=== PATIENT | male | born 1945 | race Caucasian/White ===

== ENCOUNTER 2016-12-09 06:02 | Observation (INO) | payer MEDICARE, OTHER ==
--- NOTE | 2016-12-09 06:48 | EDM.PDOC ---
ED HPI GENERAL MEDICAL PROBLEM - General Chief Complaint: Chest Pain Stated Complaint: NOT FEELING WELL/LEFT SIDE OF FACE NUMB Time Seen by Provider: 12/09/16 06:22 Source of Information: Reports: Patient, Family History Limitations: Reports: No Limitations, Other (Both the patient and his are very vague historians) - History of Present Illness INITIAL COMMENTS - FREE TEXT/NARRATIVE: This is a 71-year-old male. He comes in because he awoke this morning with a more severe left-sided facial feeling of numbness. Apparently over about the last 10 days or so he has been awakening at 2 or 3 in the morning which is kind of normal for him but when he does he just doesn't feel right and feels like his face his neck may be in his left arm is kind of numb though he can still feel. He denies any weakness during this time of his left arm no unilateral weakness at times when he does wake up he feels kind of clammy here he's noted over the last 10 days his blood pressure is been going up and coming down but doesn't really give me a idea of what the pressures have been he also notes that normally his heart rates been between 40 and 50 and that is normal for him but that he'll jump up to 80 or 90 though the rapid heart rate for him is not connected to the numbness feeling or the clamminess. He thinks the severity of the numbness or that sensation on the left side has been worse over the last several mornings. He denies any significant chest pain no shortness of breath no cough no fever no chills. He does have a history of having a stent in 2011. His states that she is noted over the last week or so that whenever he does something strenuous he would just be wiped out afterwards and feels somewhat weak and feeling wasted and occasionally he'll get some of this sensation in the left face neck and arm after doing strenuous activity. When he had the stent in 2011 he was having basically no symptoms just elevated blood pressure and they did a stress test on him and found that he had a blockage and gave him the stent. He is on CPAP which she says works very well and he is pleased with it. He also apparently has a history of certain supplements and preservatives in foods seem to make his heart speed up or flip-flop or race at times. I could never actually get a history of any sort of chest pressure, nausea, or near syncope from the patient with these symptoms as described above. The patient does state that 2 days ago when he was having these symptoms early in the morning he took his nitroglycerin stat 2 and it did seem to make a difference as far as him feeling better. Patient now gives a history that the symptoms actually seem to be worsening over the last 10 days suggesting an unstable angina. - Related Data Allergies Allergy/AdvReac Type Severity Reaction Status Date / Time No Known Allergies Allergy Verified 12/09/16 06:10 Home Meds: Home Meds Aspirin 81 mg PO DAILY 12/09/16 [History] Aspirin 325 mg PO ONCALL PRN 12/09/16 [History] Metoprolol Succinate [Toprol XL] 12.5 mg PO DAILY 12/09/16 [History] Nitroglycerin [Nitrostat] 0.4 mg SL ASDIRECTED PRN 12/09/16 [History] Past Medical History HEENT History: Reports: Cataract, Hard of Hearing, Impaired Vision Other HEENT History: Wears glasses, hearing aids Cardiovascular History: Reports: High Cholesterol, Hypertension, Stents Respiratory History: Reports: Sleep Apnea - Past Surgical History HEENT Surgical History: Reports: Cataract Surgery GI Surgical History: Reports: Colonoscopy, Hernia, Abdominal, Hernia, Inguinal Social & Family History - Tobacco Use Smoking Status *Q: Former Smoker Used Tobacco, but Quit: Yes Month Tobacco Last Used: 07/24/2002 - Recreational Drug Use Recreational Drug Use: No ED ROS GENERAL - Review of Systems Review Of Systems: See Below Constitutional: Reports: Fatigue, Diaphoresis. Denies: Fever, Chills HEENT: Reports: Other (Left facial feeling of numbness) Respiratory: Denies: Shortness of Breath, Wheezing, Cough Cardiovascular: Reports: Lightheadedness. Denies: Chest Pain, Syncope Endocrine: Reports: Fatigue GI/Abdominal: Reports: No Symptoms : Reports: No Symptoms Musculoskeletal: Reports: Other (That numb sensation to his left arm but he denies any weakness) Skin: Reports: Other (As per history of present illness) Neurological: Reports: Paresthesia. Denies: Confusion, Dizziness, Headache, Syncope, Tingling, Trouble Speaking, Difficulty Walking, Weakness Psychiatric: Reports: No Symptoms Hematologic/Lymphatic: Reports: No Symptoms ED EXAM, GENERAL - Physical Exam Exam: See Below Exam Limited By: No Limitations General Appearance: Alert, WD/WN, No Apparent Distress Eye Exam: Bilateral Eye: Normal Inspection Ears: Normal External Exam, Normal Canal, Normal TMs Nose: Normal Inspection Throat/Mouth: Normal Inspection, Normal Lips, Normal Voice, No Airway Compromise Head: Normocephalic Neck: Supple, Full Range of Motion. No: Carotid Bruit Respiratory/Chest: No Respiratory Distress, Lungs Clear, Normal Breath Sounds Cardiovascular: Regular Rate, Rhythm, No Edema, No Murmur, Bradycardia GI/Abdominal: Soft, Non-Tender Back Exam: Normal Inspection, Full Range of Motion Extremities: Normal Inspection, Normal Range of Motion, Non-Tender, No Pedal Edema Neurological: Alert, Oriented, CN II-XII Intact, Normal Cognition, No Motor/ Sensory Deficits, Other (That numb feeling in his left arm face and neck seem to have resolved at this time before getting to the ER, he appears to have symmetrical divine healer strength presently) Psychiatric: Normal Affect, Normal Mood Skin Exam: Warm, Dry, Other (No diaphoresis presently, blood sugar was 153 when he came to the ER) EKG INTERPRETATION EKG Interpretation Comments: EKG shows a sinus bradycardia of about [address] or T-wave changes noted there is no ischemia noted there's no extra beats noted. Course - Vital Signs Last Recorded V/S: Last Vital Signs Temp 97.8 F 12/09/16 06:12 Pulse 49 L 12/09/16 06:12 Resp 17 12/09/16 06:12 BP 139/77 12/09/16 06:12 Pulse Ox 100 12/09/16 06:12 - Orders/Labs/Meds Orders: Active Orders 24 hr Category Date Time Status EKG 12 Lead [EKG Documentation Completion] [RC] STAT Care 12/09/16 06:53 Active Labs: Laboratory Tests 12/09/16 12/09/16 Range/Units 06:24 06:24 WBC 6.40 (4.23-9.07) K/mm3 RBC 4.96 (4.63-6.08) M/mm3 Hgb 14.5 (13.7-17.5) gm/L Hct 42.4 (40.1-51.0) % MCV 85.5 (79.0-92.2) fl MCH 29.2 (25.7-32.2) pg MCHC 34.2 (32.2-35.5) g/dl RDW Std Deviation 44.0 H (35.1-43.9) fL Plt Count 163 (163-337) K/mm3 MPV 11.3 (9.4-12.3) fl Neut % (Auto) 62.9 (34.0-67.9) % Lymph % (Auto) 23.9 (21.8-53.1) % [place] % (Auto) 10.2 (5.3-12.2) % Eos % (Auto) 2.5 (0.8-7.0) Baso % (Auto) 0.3 (0.1-1.2) % Neut # (Auto) 4.03 (1.78-5.38) K/mm3 Lymph # (Auto) 1.53 (1.32-3.57) K/mm3 [place] # (Auto) 0.65 (0.30-0.82) K/mm3 Eos # (Auto) 0.16 (0.04-0.54) K/mm3 Baso # (Auto) 0.02 (0.01-0.08) K/mm3 Sodium 144 (136-145) mEq/L Potassium 3.6 (3.5-5.1) mEq/L Chloride 108 H (98-107) mEq/L Carbon Dioxide 27 (21-32) mEq/L Anion Gap 12.6 (5-15) BUN 25 H (7-18) mg/dL Creatinine 1.0 (0.7-1.3) mg/dL Est Cr Clr Drug Dosing 65.18 mL/min Estimated GFR (MDRD) > 60 (>60) mL/min BUN/Creatinine Ratio 25.0 H (14-18) Glucose 103 (80-115) mg/dL Calcium 9.4 (8.5-10.1) mg/dL Total Bilirubin 0.7 (0.2-1.0) mg/dL AST 20 (15-37) U/L ALT 23 (16-63) U/L Alkaline Phosphatase 56 (46-116) U/L Troponin I < 0.017 (0.00-0.056) ng/mL Total Protein 6.9 (6.4-8.2) g/dl Albumin 3.7 (3.4-5.0) g/dl Globulin 3.2 gm/dL Albumin/Globulin Ratio 1.2 (1-2) - Re-Assessments/Exams Free Text/Narrative Re-Assessment/Exam: 12/09/16 07:55 I spoke to the patient and his regarding the need for a stress test again. I suggested that he needed to be admitted but he is uncertain whether he wants to be admitted or not and there are now discussing it between themselves. I saw that he was on some Nitrostat and he has not taken the Nitrostat for the symptoms that he has in the mornings and I encouraged him to use the Nitrostat if this occurs again during the day or in the green prize packer hours and see the makes a difference. 12/09/16 08:[address] Najera and he'll admit the patient for further evaluation and stress test on Saturday. The patient and the were good with this and they wish to be admitted. Departure - Departure Time of Disposition: 08:07 Disposition: Admitted As Inpatient 68 Condition: Good Clinical Impression: Unstable angina, Bradycardia Coronary artery disease Qualifiers: Coronary Disease-Associated Artery/Lesion type: unspecified vessel or lesion type [place] vs. transplanted heart: [place] heart Associated angina: with unstable angina Qualified Code(s): I25.110 - Atherosclerotic heart disease of [place] coronary artery with unstable angina pectoris Additional Instructions: I spoke with Dr. Najera and he'll admit the patient for further evaluation and treatment with stress test on Saturday ED Communication - ED Communication Date/Time Date: 12/09/16 Time Called: 08:09 - Discussed Case With (1) Discussed Case With (1): Admitting Provider Person/s Notified (1): Celi Najera (He will admit the patient) - My Orders Last 24 Hours: My Active Orders 12/09/16 06:53 EKG 12 Lead [EKG Documentation Completion] [RC] STAT - Assessment/Plan Last 24 Hours: My Active Orders 12/09/16 06:53 EKG 12 Lead [EKG Documentation Completion] [RC] STAT
--- NOTE | 2016-12-09 08:57 | PCM.HP ---
H&P History of Present Illness - General Date of Service: 12/09/16 Admit Problem/Dx: Admission Diagnosis/Problem Admission Diagnosis/Problem Angina Source of Information: Patient, Family, Old Records, RN Notes Reviewed History Limitations: Reports: No Limitations - History of Present Illness Initial Comments - Free Text/Narative: This is a 71-year-old elderly white male with past medical history of impaired vision/hearing, hypertension, hyperlipidemia, CAD status post stent placement in 2011, and obstructive sleep apnea on CPAP who presents to the emergency department with complaints of left-sided facial numbness with radiation to his neck and left arm that woke him up this morning. Patient reports of not feeling well in the past 10 days and his blood pressures seem to have been labile. He also admits to having an abnormal heart rates between 40-50s which is chronic to him. About 2 days ago, he had similar symptoms but went away after he took 2 nitroglycerin. His left sided abnormal sensation appears to have been worse in the past several days according to him. However he denies any other neurologic complaints. No chest pain or shortness of breath. He denies any signs of systemic infection. Additionally, his notes that over the past week or so, whenever he does something strenuous, patient would just be "wiped out" and afterwards feels somewhat weak and feeling wasted. Patient has been compliant with his medications. He also uses CPAP as directed. He denies having been put on any new medications. He further denies any supplements or any [id number] herbs. He does however takes oral Mg supplement and his PCP is aware of it. At the time of my examination, patient was completely asymptomatic and he feels pretty good. His initial workup in emergency department shows an unremarkable CBC. His chemistry is remarkable for chloride of 108, and BUN of. His initial troponin 1 is negative. His EKG shows sinus bradycardia with a rate of 49. Patient is primarily being admitted for suspected angina and probable TIA. He is full code. - Related Data Allergies/Adverse Reactions: Allergies Allergy/AdvReac Type Severity Reaction Status Date / Time No Known Allergies Allergy Verified 12/09/16 09:57 Home Medications: Home Meds Aspirin 81 mg PO DAILY 12/09/16 [History] Magnesium Glycinate [Mag Glycinate] 1 tab PO BEDTIME 12/09/16 [History] Metoprolol Succinate [Toprol XL] 12.5 mg PO DAILY 12/09/16 [History] Nitroglycerin [Nitrostat] 0.4 mg SL ASDIRECTED PRN 12/09/16 [History] Past Medical History HEENT History: Reports: Cataract, Hard of Hearing, Impaired Vision Other HEENT History: Wears glasses, hearing aids Cardiovascular History: Reports: High Cholesterol, Hypertension, Stents Respiratory History: Reports: Sleep Apnea - Past Surgical History HEENT Surgical History: Reports: Cataract Surgery GI Surgical History: Reports: Colonoscopy, Hernia, Abdominal, Hernia, Inguinal Social & Family History - Tobacco Use Smoking Status *Q: Former Smoker Used Tobacco, but Quit: Yes Month Tobacco Last Used: 07/24/2002 - Recreational Drug Use Recreational Drug Use: No H&P Review of Systems - Review of Systems: Review Of Systems: See Below General: Reports: Weakness, Fatigue, Diaphoresis. Denies: Fever, Chills HEENT: Reports: No Symptoms Pulmonary: Denies: Shortness of Breath, Wheezing Cardiovascular: Reports: Lightheadedness. Denies: Chest Pain, Palpitations, Dyspnea on Exertion, Syncope, Blood Pressure Problem Gastrointestinal: Denies: Abdominal Pain, Nausea, Vomiting Genitourinary: Reports: No Symptoms Musculoskeletal: Reports: No Symptoms Skin: Denies: Cyanosis, Pallor, Diaphoresis, Bruising Psychiatric: Denies: Depression, Anxiety, Agitation, Hallucinations Neurological: Reports: Numbness, Paresthesia. Denies: Confusion, Dizziness, Headache, Seizure, Syncope, Tingling, Trouble Speaking, Difficulty Walking, Weakness, Change in Speech, Gait Disturbance Hematologic/Lymphatic: Reports: No Symptoms Immunologic: Reports: No Symptoms Exam - Exam Exam: See Below - Vital Signs Vital Signs: Last Vital Signs Temp 36.6 C 12/09/16 06:12 Pulse 49 L 12/09/16 06:12 Resp 17 12/09/16 06:12 BP 139/77 12/09/16 06:12 Pulse Ox 100 12/09/16 06:12 Weight: 77.111 kg - Exam General: Alert, Oriented, Cooperative, Mild Distress HEENT: Conjunctiva Clear, EACs Clear, EOMI, Hearing Intact, Mucosa Moist & [place] , Nares Patent, Normal Nasal Septum, Posterior Pharynx Clear, Pupils Equal, Pupils Reactive Neck: Supple, Trachea Midline Lungs: Clear to Auscultation, Normal Respiratory Effort Cardiovascular: Regular Rhythm, Bradycardia GI/Abdominal Exam: Normal Bowel Sounds, Soft, Non-Tender, No Organomegaly, No Distention, No Abnormal Bruit, No Mass (Male) Exam: Deferred Rectal (Males) Exam: Deferred Back Exam: Normal Inspection, Decreased Range of Motion Extremities: Normal Inspection, Normal Range of Motion, Non-Tender, No Pedal Edema, Normal Capillary Refill Peripheral Pulses: 2+: Posterior Tibial (L), Posterior Tibial (R), Dorsalis Pedis (L), Dorsalis Pedis (R) Skin: Warm, Dry, Intact Neuro Extensive - Mental Status: Oriented x3, Normal Cognition, Memory Intact Neuro Extensive - Motor, Sensory, Reflexes: CN II-XII Intact, Normal Gait Psychiatric: Alert, Normal Affect, Normal Mood - Patient Data Result Diagrams: 12/09/16 06:24 12/09/16 06:24 EKG INTERPRETATION EKG Date: 12/09/16 Time: 06:15 Rhythm: Other (Sinus Bradycardia) Rate (Beats/Min): 49 [place]: RAD-Right [place] Deviation P-Wave: Present QRS: Normal ST-T: Normal QT: Normal Comparison: NA - No Prior EKG *Q Meaningful Use (ADM) - VTE *Q VTE Criteria *Q: - Stroke *Q Stroke Criteria *Q: - AMI *Q AMI Criteria *Q: Problem List Initiated/Reviewed/Updated: Yes Assessment/Plan Comment:: Assessment/Plan: Acute: Chest Pain r/o ACS - HEART Score is 4. Low Score (0-3 points), risk of MACE of 12-16.6%: Predicts 6-week risk of major adverse cardiac event - Had GERD but cannot r/o cardiac in etiology - No Hx/o Premature CAD in family - Risk factors: HTN, HLD and CAD S/p Stents - No Hx/o MD/Stroke and Non-smoker - CP protocol: CE x 2 and ekg in AM - Lipid panel in AM - ASA, Nitro, Morphine, BB, +/- Statin - He is aware cardiac stress test is only avail on weekdays Probable TIA - Vague complaints of not feeling well and Paresthesia on left arm/face and neck; now have resolved - Risk factors: HLD, HTN, TARYN and Bradycardia - No Head CT scan done in ED - Brain MRI and Head/Neck MRA to r/o stroke in AM - 2D Echo and Lipid Panel in AM - ASA and Heart Healthy Diet Sinus Bradycardia - Acute on chronic - Normally in the 40s-50s per patient; occasionally he dips into the upper 30s - He is on Metoprolol 12.5 mg po daily; he should be switched to coreg-NS beta taisha - Continue to monitor Chronic: Impaired Hearing HTN HLD CAD S/p Stent placement in 2011 TARYN on CPAP Plan: Admit to OBS with Tele Routine AM Labs Cardiac/TIA Work Up Resume Home Meds except BP meds Hold BB Stress test Saturday CM/SW for d/c planning Code status: 1
[2016-12-09] MEDS ORDERED: Acetaminophen 325 MG Tab PO PRN (09:14)
[2016-12-09] MEDS ORDERED: Morphine 2 MG/ML Syringe IVPUSH PRN (09:14)
[2016-12-09] MEDS ORDERED: Acetaminophen/HYDROcodone 325-5 MG Tab PO PRN (09:14)
[2016-12-09] MEDS ORDERED: Temazepam 7.5 MG Cap PO PRN (09:17)
[2016-12-09] MEDS ORDERED: Ondansetron 4 MG/2 ML SDV IV PRN (09:17)
[2016-12-09] MEDS ORDERED: LORazepam 2 MG/ML MDV IV PRN (09:17)
[2016-12-09] MEDS ORDERED: Bisacodyl 5 MG Tab PO PRN (09:17)
[2016-12-09] MEDS ORDERED: Polyethylene Glycol 3350 Powder 17 GM Packet PO PRN (09:17)
[2016-12-09] MEDS ORDERED: Albuterol/Ipratropium 3.0-0.5 MG/3 ML Neb Soln NEB PRN (09:17)
[2016-12-09] MEDS ORDERED: Docusate Sodium 100 MG Cap PO PRN (09:17)
[2016-12-09] MEDS ORDERED: Promethazine 12.5 MG in Sodium Chloride 0.9% 50 ML IV PRN (09:17)
[2016-12-09] MEDS ORDERED: Nitroglycerin 0.4 MG Tab.SL SL PRN (10:49)
[2016-12-09] MEDS ORDERED: MAGNESIUM GLYCINATE PO SCH (21:00)
[2016-12-10 06:55] VITALS: BP 133/70
[2016-12-10] MEDS ORDERED: Aspirin 81 MG Tab.Chew PO SCH (09:00)
[2016-12-10] MEDS ORDERED: Metoprolol Succinate 25 MG Tab.ER PO SCH (09:00)
[2016-12-10] MEDS ORDERED: Diphtheria,Pertussis(Acell),Tetanus Vaccine 0.5 ML SDV IM ONE (09:16)
--- NOTE | 2016-12-10 11:52 | PCM.DCSUM1 ---
Discharge Summary - Hospital Course Brief History: This is a 71-year-old elderly white male with past medical history of impaired vision/hearing, hypertension, hyperlipidemia, CAD status post stent placement in 2011, and obstructive sleep apnea on CPAP who presents to the emergency department with complaints of left-sided facial numbness with radiation to his neck and left arm that woke him up this morning. Patient reports of not feeling well in the past 10 days and his blood pressures seem to have been labile. He also admits to having an abnormal heart rates between 40- 50s which is chronic to him. About 2 days ago, he had similar symptoms but went away after he took 2 nitroglycerin. - Discharge Data Discharge Date: 12/10/16 Discharge Disposition: Home, Self-Care 01 Condition: Good - Discharge Diagnosis/Problem(s) (1) Bradycardia SNOMED Code(s): 46843729 ICD Code: R00.1 - BRADYCARDIA, UNSPECIFIED Status: Chronic (2) Facial numbness SNOMED Code(s): 259523286 ICD Code: R20.0 - ANESTHESIA OF SKIN Status: Resolved (3) Coronary artery disease SNOMED Code(s): 73688681 ICD Code: I25.10 - ATHSCL HEART DISEASE OF [place] CORONARY ARTERY W/O ANG PCTRS Status: Resolved Qualifiers: Coronary Disease-Associated Artery/Lesion type: unspecified vessel or lesion type [place] vs. transplanted heart: [place] heart Associated angina: with unspecified angina Qualified Code(s): I25.119 - Atherosclerotic heart disease of [place] coronary artery with unspecified angina pectoris - Patient Summary/Data Operative Procedure(s) Performed: None Complications: None Consults: Consultations 12/09/16 09:17 Consult to Case Management [CONS] Routine Consult to Director Occupational [CONS] Routine Labs Pending at D/C: None Recommended Follow-up Testing/Procedures: None Planned Operative Procedure(s) after DC: None Hospital Course: Patient was primarily admitted for stroke like symptoms. He reported left facial and hand extremity numbness associated with chest discomfort. He carried a past medical history of coronary artery disease with stent placement. His workup included tests for stroke and angina. His Brain MRI/MRA, Head/Neck MRA, Skull XR, all showed no acute abnormal findings. His cardiac workup revealed benign stress test and negative cardiac enzymes. However his serial EKG was sinus bradycardia with heart rate in the upper 40s. At this point, we felt his symptoms may be associated to bradycardia. According to the patient this was not new to him and normally experienced low heart rate. His hospital course was uncomplicated. The rest of his chronic medical illness remained stable during his admission. He however was found to have an elevated LDL but the rest of his lipid panel were all normal. Overall, Mr. Dawn had done well and had not had any symptoms since admission. Patient now stable for discharge. We put parameters on his blood pressure medications. He was advised to check his vitals at least 3 times a day, 3-4 times a week and show his log to his primary care provider (also his hop picker) on follow-up appointment. He was further advised to come back or seek immediate care should his symptoms persist or get worse. The patient expressed understanding and in agreement with the plans as discussed above. All questions were answered. - Patient Instructions Diet: Heart Healthy Diet, Usual Diet as Tolerated Activity: As Tolerated Driving: Do Not Drive Showering/Bathing: May Shower Notify Provider of: Fever, Increased Pain, Nausea and/or Vomiting Other/Special Instructions: - Resume all home medications. - Please check your blood pressure at least 3x/day and 3-4x/week. Show log on you follow up appointment with your family doctor. - Call or follow up with your family doctor should you have any further questions or concerns right after discharge - Discharge Plan Home Medications: Home Meds Aspirin 81 mg PO DAILY 12/09/16 [History] Magnesium Glycinate [Mag Glycinate] 1 tab PO BEDTIME 12/09/16 [History] Nitroglycerin [Nitrostat] 0.4 mg SL ASDIRECTED PRN 12/09/16 [History] Metoprolol Succinate [Toprol XL] 12.5 mg PO DAILY #0 12/10/16 [Rx] Patient Handouts: Angina Pectoris, [id number] Referrals: Vita Tim PA-C [Primary Care Provider] - 12/13/16 (Please keep scheduled appoitnment with Vita Tim on 12/13/16.) - Discharge Summary/Plan Comment DC Time >30 min.: Yes (45 mins) Discharge Summary/Plan Comment: Discharge to Home - General Info Date of Service: 12/10/16 Admission Dx/Problem (Free Text: Admission Diagnosis/Problem Admission Diagnosis/Problem Angina Subjective Update: Follow Up Functional Status: Denies: Pain Controlled, Tolerating Diet, Ambulating, Urinating, New Symptoms - Review of Systems General: Denies: Fever, Weakness, Fatigue, Malaise, Chills HEENT: Reports: No Symptoms Pulmonary: Denies: Shortness of Breath Cardiovascular: Denies: Chest Pain Gastrointestinal: Denies: Abdominal Pain, Nausea, Vomiting Genitourinary: Reports: No Symptoms Musculoskeletal: Reports: No Symptoms Skin: Denies: Cyanosis, Mottled, Diaphoresis Neurological: Denies: Confusion, Difficulty Walking, Weakness, Gait Disturbance Psychiatric: Denies: Depression, Anxiety, Agitation, Hallucinations Systems Review Comment: No significant overnight or acute issues. He is relatively well. He has no new complaints. His HRs remained stable at 40s-50s. - Patient Data Vitals - Most Recent: Last Vital Signs Temp 37.0 C 12/10/16 05:37 Pulse 50 L 12/10/16 05:37 Resp 16 12/10/16 05:37 BP 133/70 12/10/16 05:37 Pulse Ox 100 12/10/16 05:37 Weight - Most Recent: 76.43 kg I&O - Last 24 hours: Intake & Output 12/09/16 12/10/16 12/10/16 22:59 06:59 14:59 Intake Total 120 210 Balance 120 210 Lab Results - Last 24 hrs: Laboratory Results - last 24 hr 12/09/16 12/09/16 12/09/16 Range/Units 13:07 13:07 16:20 WBC (4.23-9.07) K/mm3 RBC (4.63-6.08) M/mm3 Hgb (13.7-17.5) gm/L Hct (40.1-51.0) % MCV (79.0-92.2) fl MCH (25.7-32.2) pg MCHC (32.2-35.5) g/dl RDW Std Deviation (35.1-43.9) fL Plt Count (163-337) K/mm3 MPV (9.4-12.3) fl Neut % (Auto) (34.0-67.9) % Lymph % (Auto) (21.8-53.1) % Ross % (Auto) (5.3-12.2) % Eos % (Auto) (0.8-7.0) Baso % (Auto) (0.1-1.2) % Neut # (Auto) (1.78-5.38) K/mm3 Lymph # (Auto) (1.32-3.57) K/mm3 Ross # (Auto) (0.30-0.82) K/mm3 Eos # (Auto) (0.04-0.54) K/mm3 Baso # (Auto) (0.01-0.08) K/mm3 Sodium (136-145) mEq/L Potassium (3.5-5.1) mEq/L Chloride (98-107) mEq/L Carbon Dioxide (21-32) mEq/L Anion Gap (5-15) BUN (7-18) mg/dL Creatinine (0.7-1.3) mg/dL Est Cr Clr Drug Dosing mL/min Estimated GFR (MDRD) (>60) mL/min BUN/Creatinine Ratio (14-18) Glucose (80-115) mg/dL POC Glucose 93 (80-115) mg/dL Calcium (8.5-10.1) mg/dL Magnesium (1.8-2.4) mg/dl CK-MB (CK-2) 0.6 (0-3.6) ng/ml Troponin I < 0.017 (0.00-0.056) ng/mL Triglycerides (<150) mg/dL Cholesterol (<200) mg/dL LDL Cholesterol Direct (<100) mg/dL HDL Cholesterol (40-59) mg/dL 12/09/16 12/10/16 12/10/16 Range/Units 19:00 06:17 06:17 WBC 6.58 (4.23-9.07) K/mm3 RBC 5.13 (4.63-6.08) M/mm3 Hgb 15.0 (13.7-17.5) gm/L Hct 43.2 (40.1-51.0) % MCV 84.2 (79.0-92.2) fl MCH 29.2 (25.7-32.2) pg MCHC 34.7 (32.2-35.5) g/dl RDW Std Deviation 43.5 (35.1-43.9) fL Plt Count 176 (163-337) K/mm3 MPV 10.9 (9.4-12.3) fl Neut % (Auto) 61.5 (34.0-67.9) % Lymph % (Auto) 25.4 (21.8-53.1) % Ross % (Auto) 9.7 (5.3-12.2) % Eos % (Auto) 2.9 (0.8-7.0) Baso % (Auto) 0.3 (0.1-1.2) % Neut # (Auto) 4.05 (1.78-5.38) K/mm3 Lymph # (Auto) 1.67 (1.32-3.57) K/mm3 Ross # (Auto) 0.64 (0.30-0.82) K/mm3 Eos # (Auto) 0.19 (0.04-0.54) K/mm3 Baso # (Auto) 0.02 (0.01-0.08) K/mm3 Sodium 145 (136-145) mEq/L Potassium 3.7 (3.5-5.1) mEq/L Chloride 109 H (98-107) mEq/L Carbon Dioxide 24 (21-32) mEq/L Anion Gap 15.7 H (5-15) BUN 26 H (7-18) mg/dL Creatinine 1.1 (0.7-1.3) mg/dL Est Cr Clr Drug Dosing 63.38 mL/min Estimated GFR (MDRD) > 60 (>60) mL/min BUN/Creatinine Ratio 23.6 H (14-18) Glucose 104 (80-115) mg/dL POC Glucose (80-115) mg/dL Calcium 9.6 (8.5-10.1) mg/dL Magnesium 2.1 (1.8-2.4) mg/dl CK-MB (CK-2) 0.6 0.6 (0-3.6) ng/ml Troponin I < 0.017 < 0.017 (0.00-0.056) ng/mL Triglycerides 57 (<150) mg/dL Cholesterol 184 (<200) mg/dL LDL Cholesterol Direct 117 H* (<100) mg/dL HDL Cholesterol 47.0 (40-59) mg/dL Med Orders - Current: Current Medications Acetaminophen (Tylenol) 650 mg PO Q4H PRN PRN Reason: Pain (Mild 1-3)/fever Hydrocodone Bitart/Acetaminophen ([place] 325-5 Mg) 1 tab PO Q4H PRN PRN Reason: Pain (moderate 4-6) Albuterol/Ipratropium (Duoneb 3.0-0.5 Mg/3 Ml) 3 ml NEB Q4H PRN PRN Reason: Shortness Of Breath/wheezing Aspirin (Aspirin) 81 mg PO DAILY DARCIE Bisacodyl (Dulcolax) 5 mg PO DAILY PRN PRN Reason: Constipation Docusate Sodium (Colace) 100 mg PO BID PRN PRN Reason: Constipation Promethazine HCl 12.5 mg/ (Sodium Chloride) 50.5 mls @ 100 mls/hr IV Q6H PRN PRN Reason: Nausea/Vomiting Lorazepam (Ativan) 1 mg IV Q6H PRN PRN Reason: Anxiety Morphine Sulfate (Morphine) 1 mg IVPUSH Q4H PRN PRN Reason: Pain (severe 7-10) Stop: 12/13/16 09:17 Nitroglycerin (Nitrostat) 0.4 mg SL ASDIRECTED PRN PRN Reason: Chest Pain Non-Formulary Medication (Magnesium Glycinate [Mag Glycinate]) 1 tab PO BEDTIME DARCIE Ondansetron HCl (Zofran) 4 mg IV Q6H PRN PRN Reason: Nausea/Vomiting Polyethylene Glycol (Miralax) 17 gm PO DAILY PRN PRN Reason: Constipation Senna/Docusate Sodium (Senna Plus) 1 tab PO BID PRN PRN Reason: Constipation Temazepam (Restoril) 7.5 mg PO BEDTIME PRN PRN Reason: Sleep Discontinued Medications Diphtheria/Tetanus/Acell Pertussis (Adacel) 0.5 ml IM .ONCE ONE Stop: 12/10/16 09:17 Metoprolol Succinate (Toprol Xl) 12.5 mg PO DAILY DARCIE - Exam General: Reports: Alert, Oriented, Cooperative, No Acute Distress HEENT: Reports: Pupils Equal, Pupils Reactive, EOMI, Mucous Membr. Moist/[place] Neck: Reports: Supple, Trachea Midline, No JVD Lungs: Reports: Clear to Auscultation, Normal Respiratory Effort Cardiovascular: Reports: Regular Rate, Regular Rhythm GI/Abdominal Exam: Normal Bowel Sounds, Soft, Non-Tender, No Organomegaly, No Distention, No Abnormal Bruit, No Mass (Male) Exam: Deferred Rectal (Males) Exam: Deferred Back Exam: Reports: Normal Inspection, Decreased Range of Motion Extremities: Normal Inspection, Normal Range of Motion, Non-Tender, No Pedal Edema, Normal Capillary Refill Skin: Reports: Warm, Dry, Intact Neurological: Reports: No New Focal Deficit Psy/Mental Status: Reports: Alert, Normal Affect, Normal Mood *Q Meaningful Use (DIS) - VTE *Q VTE Criteria *Q: - Stroke *Q Stroke Criteria *Q: - AMI *Q AMI Criteria *Q:
[2016-12-10] MEDS ORDERED: Sodium Chloride 0.9% 10 ML SDV IV ONE (12:12)
[2016-12-10] MEDS ORDERED: Gadobenate Dimeglumine 529 MG/ML 20 ML SDV IVPUSH ONE (12:12)
[2016-12-10] MEDS ORDERED: Sodium Chloride 0.9% 10 ML Syringe FLUSH PRN (12:13)
--- NOTE | 2016-12-10 14:44 | CR ---
Skull: Two views of the skull were obtained. Study was centered to the orbits. Comparison: No prior skull study. Visualized sinuses are clear. Surrounding bony structures are intact. No radiopaque foreign object is seen. Impression: 1. Nothing is seen to contraindicate scheduled MRI. Diagnostic code #1
--- NOTE | 2016-12-10 14:45 | MR ---
MR angiogram of brain Technique: MR angiogram study obtained centered in the [place]. Intravenous contrast not utilized. Multiple MIP images were obtained in multiple projections. Comparison: No prior MR angiogram. Findings: There is flow within the distal vertebral vessels as well as basilar artery. Both posterior cerebral arteries appear patent. Carotid siphon appears patent. Normal appearance of the middle and anterior cerebral arteries are seen. There is no focal area of stenosis being seen. No aneurysm is identified. Impression: 1. No abnormality is identified on MR angiogram study centered to the [place]. Diagnostic code #1
--- NOTE | 2016-12-10 14:45 | NM ---
Cardiolite portion of cardiac stress test Technique: I have data stating patient was stressed utilizing treadmill protocol. The patient reached 128 bpm which is also the patient's 85% maximum predicted heart rate. Stress dose of technetium 99m Cardiolite was 10.6 mCi. Rest dose was 30.1 mCi. SPECT imaging was obtained in 3 planes for both portions of the study. Study was also gated. Low-dose chest CT performed to allow for attenuation correction. Comparison: Previous Cardiolite study of 04/27/11. Findings: Non-attenuation images shows large perfusion defect within the inferior wall which disappears on the attenuation correction study compatible with diaphragmatic attenuation. No fixed or reversible type defects are seen. Ejection fraction is 70%. Diminished wall thickening is seen within the inferior wall believed to be due to diaphragmatic artifact. Other portions of the left ventricular myocardium shows normal wall thickening. Impression: 1. Diaphragmatic artifact as described above. Nothing appreciated to indicate definite reversible ischemia. Normal ejection fraction is seen. Diagnostic code #2
--- NOTE | 2016-12-10 14:45 | MR ---
MR angiogram of neck Technique: Post-gadolinium MR angiogram study was obtained of the neck. Reconstructed MIP images were obtained. Findings: Right and left common carotid arteries show no stenosis. Right and left vertebral arteries are patent. Internal carotid arteries appear to be patent without significant stenosis. Impression: 1. No abnormality is identified on MR angiogram of the neck. Diagnostic code #1
--- NOTE | 2016-12-10 14:45 | MR ---
MRI brain (with and without contrast) Technique: T1 sagittal; T2, T2 FLAIR, T1 and diffusion axial; T1 FLAIR coronal; post-gadolinium T1 axial and post-gadolinium T1 and FLAIR coronal images were obtained. Comparison: Previous head CT exam of 02/19/13. Findings: Ventricles along with basal cisterns and sulci over the convexities appear within normal limits for the patient's age. Normal signal void is seen within the major cerebral arteries within the skull base. No abnormal signal seen within the brain parenchyma. No midline shift or mass effect is seen. No acute diffusion abnormalities are seen. Impression: 1. No abnormality is identified on MRI study of the brain. Diagnostic code #1
--- NOTE | 2016-12-11 06:45 | STRESS ---
REQUESTING PHYSICIAN: DATE: 12/09/2016 ORDERING PROVIDER: Celi Najera DO. [employer] INTERPRETER: He does see Cardiology with [facility], [place]. PROCEDURE: Cardiolite stress test. INDICATION: Chest pain. BASELINE EKG: Sinus bradycardia with ventricular rate 55 beats per minute. Q-waves noted in leads 1, 2, 3, aVF and V6. PROTOCOL: Mike protocol, this was modified after injection of Lexiscan and held at that level. Treadmill was then slowed from 3.4 miles/hour to 2.8 miles/hour due to shortness of breath and fatigue. Max heart rate 130 beats per minute. Peak blood pressure 181/90, total exercise time 8 minutes 29 seconds. METS achieved 10.1. During exertion and recovery, the patient did not experience any chest pain or anginal equivalent. He did become quite short of breath, but was able to tolerate exercise. Treadmill was slowed after injection of Lexiscan. There were no ST-T wave changes noted. No arrhythmias. No PVCs/PACs. IMPRESSION: 1. Electrographically negative exercise stress test for ischemia. 2. Normal blood pressure response to stress/exercise. 3. Good exercise tolerance. 4. Nuclear imaging results pending and will be reported separately per radiologist. MMODAL /[id number]
== END 2016-12-10 15:50 | disposition home or self-care (01) ==
LOC: JD.ED 06:02 → JD.MS 08:12 → UNDOADMOB 08:15 → JD.MS 08:15
PROVIDERS: ADMIT Internal Medicine; ATTEND Internal Medicine
DX: R20.0 Anesthesia of skin (principal); R00.1 Bradycardia, unspecified; I25.119 Atherosclerotic heart disease of native coronary artery with unspecified angina pectoris; I10 Essential (primary) hypertension; G47.33 Obstructive sleep apnea (adult) (pediatric); E78.00 Pure hypercholesterolemia, unspecified; Z79.82 Long term (current) use of aspirin; Z79.899 Other long term (current) drug therapy; Z98.49 Cataract extraction status, unspecified eye; Z98.890 Other specified postprocedural states; Z87.891 Personal history of nicotine dependence; Z82.49 Family history of ischemic heart disease and other diseases of the circulatory system
CPT/HCPCS: 36415; 70250; 70544; 70548; 70553; 78452; 80048; 80053; 80061; 82553; 82962; 83735; 84484; 85025; 93005; 93306; 99285; A9500; A9577; J7050; 93010; 93017; G0378; J2785

== ENCOUNTER 2021-12-05 05:02 | Emergency (ER) | payer MEDICARE, OTHER ==
[2021-12-05 05:22] VITALS: PULSE 73
[2021-12-05 08:57] VITALS: BP 128/77
== END 2021-12-05 08:55 | disposition home or self-care (01) ==
LOC: JD.ED 05:02
DX: R20.2 Paresthesia of skin (principal); I25.10 Atherosclerotic heart disease of native coronary artery without angina pectoris; I10 Essential (primary) hypertension; Z79.899 Other long term (current) drug therapy; Z87.891 Personal history of nicotine dependence
CPT/HCPCS: 36415; 70450; 70450-26; 71046; 71046-26; 80053; 83735; 83880; 84484; 85025; 85379; 93005; 99284

== ENCOUNTER 2023-07-24 09:11 | Emergency (ER) | payer MEDICARE, OTHER ==
[2023-07-24 09:57] LABS: BASOPHILS PERCENT AUTO 0.5 % (0.0-1.0); EOSINOPHILS PERCENT AUTO 0.2 % (0.0-6.0); HEMATOCRIT 44.7 % (42.0-52.0); IMMATURE GRAN ABSOLUTE AUTO 0.01 K/mm3 (0.00-0.05); IMMATURE GRAN PERCENT AUTO 0.2 % (0.0-0.4); LYMPHOCYTES ABSOLUTE AUTO 1.1 K/mm3 (1.0-4.8); LYMPHOCYTES PERCENT AUTO 20.1 % (24.0-44.0); MEAN CORPUSCULAR HGB CONC 33.6 g/dl (32.0-36.0); MEAN CORPUSCULAR VOLUME 86.5 fl (83.0-99.0); MEAN PLATELET VOLUME 10.4 fl (9.4-12.4); MONOCYTES ABSOLUTE AUTO 0.7 K/mm3 (0.0-0.8); MONOCYTES PERCENT AUTO 11.4 % (0.0-8.0); NEUTROPHILS ABSOLUTE AUTO 3.8 K/mm3 (1.8-7.7); NEUTROPHILS PERCENT AUTO 67.6 % (41.0-71.0); PLATELET COUNT,PLT 182 K/mm3 (150-400); RED BLOOD CELL COUNT 5.17 M/mm3 (4.52-5.90); WHITE BLOOD CELL COUNT,WBC 5.68 K/mm3 (3.9-11.3)
[2023-07-24] MEDS: Famotidine 20 MG/2 ML SDV IVPUSH ONE (10:02)
[2023-07-24] MEDS: Sodium Chloride 0.9% 1,000 ML IV ONE (10:05)
[2023-07-24] MEDS: Aluminum Hydroxide/Magnesium Hydroxide/Simethicone Susp 30 ML Cup PO ONE (10:06)
[2023-07-24 10:25] LABS: A/G RATIO 1.1 (1-2); ALBUMIN 3.7 g/dl (3.4-5.0); ANION GAP 13.6 (5-15); BILIRUBIN TOTAL 0.6 mg/dL (0.2-1.0); BUN/CREATININE RATIO 18.2 (14-18); CALCIUM 9.4 mg/dL (8.5-10.1); CREATININE 1.1 mg/dL (0.7-1.3); EST CRCL DRUG DOSING (CG) 57.13 mL/min; POTASSIUM,K 3.6 mEq/L (3.5-5.1)
[2023-07-24 12:02] VITALS: BP 150/88; PULSE 80
== END 2023-07-24 12:00 | disposition home or self-care (01) ==
LOC: JD.ED 09:11
DX: R06.02 Shortness of breath (principal); R53.83 Other fatigue; I25.10 Atherosclerotic heart disease of native coronary artery without angina pectoris; I10 Essential (primary) hypertension; Z79.899 Other long term (current) drug therapy
CPT/HCPCS: 36415; 71045; 80053; 82947; 83690; 84484; 85025; 93005; 96361; 96374; 99285; A9270; J3490; J7030; 93010; 99284